=== PATIENT | female | born 1955 | race African-American/Black ===

== ENCOUNTER 2019-07-12 10:37 | Day surgery (SDC) | payer OTHER ==
[~2019-07-12] VITALS: Ht 160 cm; Wt 63.6 kg
[~2019-07-12 10:37] MED LIST: CERTIRIZINE PO; DIFLUCAN100 MG PO; HYDROCHLOROTHIA25 MG PO; HYDROCODON-ACE1 EA10 PO; LINZESS72 MCG PO; LISINOPRIL40 MG PO; MACRODANTIN100 MG PO; OXYBUTYNIN CHLOR5 M1 PO; PROTONIX40 MG PO; RYTHMOL SR325 MG PO; SUPER VIT B COMPLEX; TOPROL XL100 MG; TRULICITY0.75 MG/0. SC; ULTRAM50 MG PO; VITAMIN D3 PO; ZOCOR20 MG PO
[2019-07-12] MEDS ORDERED: [UNRECOGNIZED DRUG - OTHER] PO (12:08)
[2019-07-12] MEDS ORDERED: ZOFRAN4 MG PO (12:09)
[2019-07-12] MEDS ORDERED: HYDROCODON-ACE1 EA10 PO (12:11)
[2019-07-12 12:23] VITALS: BP 120/70; BMI 24.8
[2019-07-12 12:37] LABS: BASOPHILS 0.2 % (0-2); EOSINOPHILS 0.8 % (0-7); HEMOGLOBIN 14.3 g/dL (12-16); IMMATURE GRANULOCYTES 0.2 % (0-5); MCH 29.7 pg (26.0-34.0); MCHC 32.5 g/dL (31.0-37.0); MCV 91.3 fL (80.0-100.0); MEAN PLATELET VOLUME 9.4 fL (7.4-10.4); MONOCYTES 8.1 % (2-11); NEUTROPHILS 53.7 % (40-80); PLATELET COUNT 271 10x3/uL (130-400); RBC 4.82 10x6/uL (4.00-5.40); RDW 13.2 % (11.5-14.5); WBC 8.9 10x3/uL (4.8-10.8)
[2019-07-12 12:44] LABS: APPEARANCE CLEAR (CLEAR); BILIRUBIN NEGATIVE (NEGATIVE); COLOR YELLOW (YELLOW); GLUCOSE NEGATIVE (NEGATIVE); KETONE NEGATIVE (NEGATIVE); NITRITE NEGATIVE (NEGATIVE); PROTEIN NEGATIVE (NEGATIVE); SPECIFIC GRAVITY 1.015 (1.005-1.020); UROBILINOGEN NORMAL (NORMAL)
[2019-07-12 12:47] LABS: ANION GAP 14.2 mmol/L (8-16); CALCIUM 9.8 mg/dL (8.5-10.1); CARBON DIOXIDE 28.8 mmol/L (21.0-32.0); CREATININE - SERUM 0.9 mg/dL (0.6-1.3)
[2019-07-12 18:26] VITALS: BP 113/68; Ht 160 cm; Wt 63.6 kg
--- NOTE | 2019-07-12 19:00 | NUR ---
BEDSIDE REPORT RECEIVED AND CARE OF PT ASSUMED. VERNON LUX RN IN CHANGED DRESSING ON PT'S LUMBAR AREA THAT WAS SATURATED WITH BLOOD. INCISION WELL APPROXIMATED. FAMILY AT BEDSIDE.
--- NOTE | 2019-07-12 19:31 | NUR ---
CALLED DR HANSON AND RECEIVED ORDER FOR MORPHINE 1-2 MG IVP Q3HR PRN PAIN.
[2019-07-12 20:00] VITALS: BP 116/68
--- NOTE | 2019-07-12 20:03 | NUR ---
CALLED DR HANSON FOR PT C/O SORE THROAT. RECEIVED ORDER FOR CHLORASEPTIC LOSENGERS Q2HR PRN.
--- NOTE | 2019-07-12 21:44 | NUR ---
CHANGED DRESSING ON LUMBAR AREA THAT WAS SOAKED WITH BLOOD. INCISION WELL APPROXIMATED. PLACED 2X2'S COVERED WITH TEGADERM.
[2019-07-13] VITALS: BP 112/62
[2019-07-13 04:00] VITALS: BP 103/53
--- NOTE | 2019-07-13 06:51 | NUR ---
CHANGED DRESSING ON INCISION ON LUMBAR BACK...OLD DRESSING WAS 50% SOAKED WITH BLOOD. INCISION WELL APPOXIMATED.
[2019-07-13 09:47] VITALS: BP 150/92
[2019-07-13] MEDS ORDERED: MEDROL DOSE PACK4 MG PO (11:16)
--- NOTE | 2019-07-13 12:47 | NUR ---
IV DISCONTINUED WITH PATIENT VERBALIZING UNDERSTANDING OF DISCHARGE INSTRUCTIONS. STABLE AT TIME OF DEPARTURE WOTH RX GIVEN X2. LEFT POV WITH FAMILY.
[2019-07-13 13:39] VITALS: BP 118/66
--- NOTE | 2019-07-25 16:12 | OP ---
PATIENT NAME: LEISA FOREMAN MEDICAL RECORD: [id number] :57 LOCATION:[facility] ADMISSION DATE: SURGEON: HOLLY FALLON MD DATE OF OPERATION: 07/12/2019 SURGEON: Holly Fallon MD PREOPERATIVE DIAGNOSES: Foraminal stenosis and spinal stenosis at L4-L5 on the right. PROCEDURE: Right L4-L5 lumbar laminotomy, medial facetectomy and foraminotomy with METRx retractor. DESCRIPTION AND TECHNIQUE: After induction of general endotracheal anesthesia, the patient was rolled prone on the Lloyd frame. Lumbar spine was prepped and draped in usual sterile fashion. Fluoroscopic x-ray and spinal needle localized the L4-L5 interspace on the right side. After infiltration of 100,000 with 1% lidocaine, a stab incision was created with a #11 blade. A series of dilators were used to advance a METRx retractor at L4-L5 on the right. Level was confirmed with fluoroscopic x-ray. A microscope and Midas Romel drill were used to perform a laminotomy, medial facetectomy, and foraminotomy at L4-L5 on the right. Hypertrophied ligamentum flavum was removed with Cloward rongeurs. Following this, the dura was decompressed on the right side at L4 and L5 nerve roots. Meticulous hemostasis was maintained throughout the wound. Retractors were removed. The fascia was closed with 2-0 Vicryl suture, the subdermal layer was closed with 3-0 Vicryl suture. Skin was closed with ryland. A sterile dressing was applied to the wound. The patient was awakened in good condition and taken to recovery. All counts were reported to as correct. Estimated blood loss was minimal. TRANSINT:[id number] Voice Confirmation ID: [id number] DOCUMENT ID: [id number] HOLLY FALLON MD at 1612 CC: [id number] DICTATION DATE: 07/25/19 1352 MORTGAGE ASSISTANT: 07/25/19 1414 [facility] 07/13/[address] [id number]
== END 2019-07-13 13:50 | disposition home or self-care (01) ==
LOC: D.PAN 10:37 → D.MS 10:37 → D.OPS 10:37 → D.PAN 13:00 → D.MS 17:05 → D.OPS 07-13 13:50
PROVIDERS: Anesthesiology; ATTEND Neurological Surgery
DX: M48.061 Spinal stenosis, lumbar region without neurogenic claudication (principal)